=== PATIENT | female | born 1940 | race Two or more races ===

== ENCOUNTER → 2022-04-02 | Outpatient (CLI) | payer OTHER, MEDICAID | END | disposition home or self-care (01) | LOC: XYW 13:06 | PROVIDERS: ATTEND Internal Medicine | DX: I08.0 Rheumatic disorders of both mitral and aortic valves (principal); R07.9 Chest pain, unspecified; I11.9 Hypertensive heart disease without heart failure | CPT/HCPCS: 93306 ==

== ENCOUNTER → 2022-04-04 | Outpatient (CLI) | payer OTHER, MEDICAID ==
[~2022-04-04] VITALS: Ht 154.9 cm; Wt 48.5 kg
[~2022-04-04] MED LIST: ADENOSINE 41 MG in GIVE UN-DILUTED 0 ML IV STA
== END | disposition home or self-care (01) ==
LOC: XYW 07:10 → EDUNIT# 07:30
PROVIDERS: ATTEND Internal Medicine
DX: R07.9 Chest pain, unspecified (principal)
CPT/HCPCS: 78452; 93017; A9500; J0153

== ENCOUNTER → 2022-04-05 | Outpatient (CLI) | payer OTHER, MEDICAID | END | disposition home or self-care (01) | LOC: XY 08:38 | PROVIDERS: ATTEND Internal Medicine | DX: I65.23 Occlusion and stenosis of bilateral carotid arteries (principal); R09.89 Other specified symptoms and signs involving the circulatory and respiratory systems | CPT/HCPCS: 93886 ==

== ENCOUNTER 2022-05-18 04:41 | Inpatient (IN) | payer OTHER, MEDICAID ==
[~2022-05-18] VITALS: Ht 162.6 cm; Wt 57.0 kg
[2022-05-18] MEDS ORDERED: ONDANSETRON HCL 4 MG/2 ML VIAL IV ONE ×2 (06:15→09:15)
[2022-05-18] MEDS ORDERED: MORPHINE SULFATE INJ 2 MG/ml SYRG IV ONE ×2 (06:15→09:15)
[2022-05-18] MEDS ORDERED: SODIUM CHLORIDE 0.9% 1,000 ML IV ONE (07:30)
[2022-05-18 07:58] LABS: Basophils # (auto) 0 10 ^3/uL (0-0.2); Basophils % (auto) 0.4 % (0.0-2.0); Eosinophils # (auto) 0.1 10 ^3/uL (0-0.8); Eosinophils % (auto) 0.9 % (0.0-7.0); Hematocrit 32.1 % (36.0-46.0); Hemoglobin 10.9 g/dL (12.2-16.2); Lymphocytes # (auto) 1.3 10 ^3/uL (0.4-5.4); Lymphocytes % (auto) 21.6 % (10.0-50.0); Mean Corpuscular Volume 88.4 fL (80.0-100.0); Monocytes # (auto) 0.4 10 ^3/uL (0-1.3); Monocytes % (auto) 6.5 % (0.0-12.0); Neutrophils # (auto) 4.3 10 ^3/uL (1.6-8.6); Neutrophils % (auto) 70.6 % (37.0-80.0); Nucleated Red Blood Cells % 0.1 %; Red Blood Cells 3.63 10^6/uL (4.0-5.20); Red Cell Distribution Width 13.1 % (11.8-14.3)
[2022-05-18 08:16] LABS: Albumin 3.1 g/dL (3.4-5.0); BUN/Creatinine Ratio 20.8; Calcium 9.5 mg/dL (8.5-10.1); Potassium 4.6 mmol/L (3.5-5.1)
[2022-05-18 09:01] LABS: Bilirubin, Total 0.6 mg/dL (0.2-1.0)
[2022-05-18 11:17] LABS: INR 1.01 (0.9-1.15)
[2022-05-18] MEDS ORDERED: hydrALAZINE HCL 20 MG/ML VL IV PRN (13:00)
[2022-05-18] MEDS ORDERED: ONDANSETRON HCL 4 MG/2 ML VIAL IV PRN (13:00)
[2022-05-18] MEDS ORDERED: NITROGLYCERIN 0.4 MG SL TAB SL PRN (13:00)
[2022-05-18] MEDS: SODIUM CHLORIDE 0.9% 1,000 ML IV SCH (13:00)
[2022-05-18] MEDS ORDERED: MORPHINE SULFATE INJ 2 MG/ml SYRG IV PRN ×2 (13:00)
[2022-05-18] MEDS ORDERED: DEXTROSE (50%) 50ML SYRG IV PRN (13:00)
[2022-05-18] MEDS: InsuLIN REG 1unit/0.01ml Soln (100units/ml) SC SCH ×2 (18:00→23:41)
[2022-05-18] MEDS: ACCU-CHEK COMFORT CURVE STRIP VI SCH ×2 (18:00→23:41)
[2022-05-18 22:00] VITALS: BP 128/53
[2022-05-18 22:38] VITALS: BP 128/53
[2022-05-18] MEDS ORDERED: ASPI1TAB37 PO (22:51)
[2022-05-18] MEDS ORDERED: AMLO-483 PO (22:51)
[2022-05-18] MEDS ORDERED: METF-370 PO (22:51)
[2022-05-18] MEDS ORDERED: CHOL50007 PO (22:51)
[2022-05-18] MEDS ORDERED: GLIP10TA9 PO (22:51)
[2022-05-18 22:58] LABS: Urine Bacteria NONE SEEN /hpf (None Seen); Urine Blood 1+ /uL (Negative); Urine Hyaline Cast FEW /lpf (0 - 2); Urine Mucus FEW (None Seen); Urine Specific Gravity 1.012 (1.001-1.035); Urine WBC 10 /hpf (0 - 5)
[2022-05-19 05:00] VITALS: BP 149/60
[2022-05-19] MEDS: ACCU-CHEK COMFORT CURVE STRIP VI SCH ×3 (05:21→18:34)
[2022-05-19] MEDS: InsuLIN REG 1unit/0.01ml Soln (100units/ml) SC SCH ×3 (05:24→18:36)
[2022-05-19] MEDS: SODIUM CHLORIDE 0.9% 1,000 ML IV SCH (06:14)
[2022-05-19 06:45] LABS: Basophils # (auto) 0 10 ^3/uL (0-0.2); Basophils % (auto) 0.6 % (0.0-2.0); Eosinophils # (auto) 0.1 10 ^3/uL (0-0.8); Mean Corpuscular Hemoglobin 30.7 pg (28.0-32.0); Monocytes # (auto) 0.4 10 ^3/uL (0-1.3); Monocytes % (auto) 8.9 % (0.0-12.0); Nucleated Red Blood Cells % 0.1 %; White Blood Cell 4.8 10^3/uL (4.4-10.8)
[2022-05-19 06:47] LABS: Eosinophils % (auto) 1.7 % (0.0-7.0); Hematocrit 29.3 % (36.0-46.0); Hemoglobin 10.3 g/dL (12.2-16.2); Lymphocytes # (auto) 1.2 10 ^3/uL (0.4-5.4); Lymphocytes % (auto) 26.1 % (10.0-50.0); Mean Corpuscular Hgb Conc. 34.9 g/dL (32.0-36.0); Mean Corpuscular Volume 87.9 fL (80.0-100.0); Neutrophils % (auto) 62.7 % (37.0-80.0); Red Blood Cells 3.34 10^6/uL (4.0-5.20); Red Cell Distribution Width 13.1 % (11.8-14.3)
[2022-05-19] MEDS ORDERED: VANCOMYCIN HCL 1000 MG VL ONE (07:06)
[2022-05-19 07:08] LABS: Albumin 2.9 g/dL (3.4-5.0); Calcium 8.9 mg/dL (8.5-10.1); Potassium 4.5 mmol/L (3.5-5.1)
[2022-05-19 07:12] LABS: Bilirubin, Total 0.8 mg/dL (0.2-1.0); Total Protein 5.7 g/dL (6.4-8.2)
[2022-05-19] MEDS ORDERED: DexAMETHasone SOD PHOS 10MG/1ML VIAL INJ ONE (07:19)
[2022-05-19] MEDS ORDERED: PROPOFOL 10 MG/ML 20 ML IV ONE (07:19)
[2022-05-19] MEDS ORDERED: LIDOCAINE 2% (LOCAL ANESTH.) PF 5ml SDV ONE (07:19)
[2022-05-19] MEDS ORDERED: ONDANSETRON HCL 4 MG/2 ML VIAL ONE (07:19)
[2022-05-19] MEDS ORDERED: fentaNYL CITRATE 100 MCG/2 ML VL ONE (07:22)
[2022-05-19] MEDS ORDERED: BUPIVACAINE 0.25% INJ 50ML VIAL ONE (07:54)
[2022-05-19] MEDS ORDERED: HYDROmorphone HCL 2 MG/ML VL/or syr IV PRN ×2 (09:00)
[2022-05-19] MEDS ORDERED: LABETALOL HCL 5 MG/ML 4ML SYRINGE IV PRN (09:00)
[2022-05-19] MEDS ORDERED: ONDANSETRON HCL 4 MG/2 ML VIAL IV PRN (09:00)
[2022-05-19] MEDS ORDERED: hydrALAZINE HCL 20 MG/ML VL IV PRN (09:00)
[2022-05-19] MEDS ORDERED: HYDROmorphone HCL 2 MG/ML VL/or syr ONE (09:02)
[2022-05-19] MEDS: VANCOMYCIN 1GM/250ML 250 ML IV SCH ×2 (10:00→21:54)
[2022-05-19] MEDS ORDERED: PANTOPRAZOLE 40 MG/10 ML VIAL INJ IV SCH (10:00)
[2022-05-19] MEDS ORDERED: SENNA 8.6 MG TAB PO PRN (16:15)
[2022-05-19] MEDS ORDERED: HYDROmorphone HCL 2 MG TAB PO PRN (16:15)
[2022-05-19] MEDS ORDERED: POLYETHYLENE GLYCOL 17 GM PWDR PO PRN (16:15)
[2022-05-19 17:00] VITALS: BP 108/44
[2022-05-19 19:45] VITALS: BP 111/48
[2022-05-19] MEDS: SENNA 8.6 MG TAB PO SCH (21:51)
[2022-05-19] MEDS: ACETAMINOPHEN 500 MG TAB PO SCH (21:53)
[2022-05-19 22:00] VITALS: BP 111/48
[2022-05-20] VITALS (7 sets, daily range): BP systolic 101–124; BP diastolic 31–51
[2022-05-20] MEDS: ACCU-CHEK COMFORT CURVE STRIP VI SCH ×5 (00:06→23:47)
[2022-05-20] MEDS: InsuLIN REG 1unit/0.01ml Soln (100units/ml) SC SCH ×5 (00:12→23:47)
[2022-05-20] MEDS: ACETAMINOPHEN 500 MG TAB PO SCH ×3 (05:45→21:30)
[2022-05-20] MEDS: POLYETHYLENE GLYCOL 17 GM PWDR PO SCH (09:49)
[2022-05-20] MEDS: ENOXAPARIN SOD 40 MG/0.4 ML SYRINGE SC SCH (09:49)
[2022-05-20] MEDS ORDERED: SODIUM CHLORIDE 0.9% 250 ML IV ONE (12:15)
[2022-05-20] MEDS: MORPHINE SULFATE INJ 2 MG/ml SYRG IV PRN (12:26)
[2022-05-20] MEDS: SODIUM CHLORIDE 0.9% 1,000 ML IV SCH (12:27)
[2022-05-20] MEDS ORDERED: VANCOMYCIN 1GM/250ML 250 ML IV ONE (13:15)
[2022-05-20] MEDS: SENNA 8.6 MG TAB PO SCH (21:31)
[2022-05-21] MEDS: SODIUM CHLORIDE 0.9% 1,000 ML IV SCH (01:19)
[2022-05-21 05:00] VITALS: BP 108/42
[2022-05-21] MEDS: ACCU-CHEK COMFORT CURVE STRIP VI SCH ×4 (05:57→23:45)
[2022-05-21] MEDS: ACETAMINOPHEN 500 MG TAB PO SCH ×3 (05:57→18:03)
[2022-05-21] MEDS: InsuLIN REG 1unit/0.01ml Soln (100units/ml) SC SCH ×4 (05:59→23:48)
[2022-05-21 08:00] VITALS: BP 129/54
[2022-05-21 08:44] VITALS: BP 129/54
[2022-05-21] MEDS: POLYETHYLENE GLYCOL 17 GM PWDR PO SCH (09:56)
[2022-05-21] MEDS: ENOXAPARIN SOD 40 MG/0.4 ML SYRINGE SC SCH (09:57)
[2022-05-21] MEDS: MORPHINE SULFATE INJ 2 MG/ml SYRG IV PRN ×2 (09:57→20:11)
[2022-05-21 13:56] VITALS: BP 111/49
[2022-05-21 16:34] VITALS: BP 123/45
[2022-05-21 22:00] VITALS: BP 118/50
[2022-05-21] MEDS: SENNA 8.6 MG TAB PO SCH (22:16)
[2022-05-22 05:00] VITALS: BP 142/59
[2022-05-22] MEDS: InsuLIN REG 1unit/0.01ml Soln (100units/ml) SC SCH ×4 (06:00→23:07)
[2022-05-22] MEDS: ACETAMINOPHEN 500 MG TAB PO SCH ×3 (06:00→20:34)
[2022-05-22] MEDS: ACCU-CHEK COMFORT CURVE STRIP VI SCH ×4 (06:11→23:05)
[2022-05-22 08:00] VITALS: BP 123/46
[2022-05-22 09:00] VITALS: BP 123/46
[2022-05-22] MEDS: ENOXAPARIN SOD 40 MG/0.4 ML SYRINGE SC SCH (09:36)
[2022-05-22] MEDS: POLYETHYLENE GLYCOL 17 GM PWDR PO SCH (09:36)
[2022-05-22] MEDS: MORPHINE SULFATE INJ 2 MG/ml SYRG IV PRN ×2 (09:37→16:27)
[2022-05-22 13:00] VITALS: BP 99/54
[2022-05-22 16:55] VITALS: BP 117/49
[2022-05-22] MEDS: SENNA 8.6 MG TAB PO SCH (20:33)
[2022-05-22 22:00] VITALS: BP 116/45
[2022-05-23] VITALS (11 sets, daily range): BP systolic 131–168; BP diastolic 45–76
[2022-05-23] MEDS: ACETAMINOPHEN 500 MG TAB PO SCH (06:20)
[2022-05-23] MEDS: ACCU-CHEK COMFORT CURVE STRIP VI SCH ×4 (06:20→23:47)
[2022-05-23] MEDS: InsuLIN REG 1unit/0.01ml Soln (100units/ml) SC SCH ×4 (06:25→23:50)
[2022-05-23 06:33] LABS: BUN/Creatinine Ratio 23.4; Calcium 8.9 mg/dL (8.5-10.1); Potassium 4.3 mmol/L (3.5-5.1)
[2022-05-23 07:24] LABS: Basophils # (auto) 0 10 ^3/uL (0-0.2); Basophils % (auto) 0.3 % (0.0-2.0); Eosinophils # (auto) 0.1 10 ^3/uL (0-0.8); Lymphocytes # (auto) 0.8 10 ^3/uL (0.4-5.4); Monocytes # (auto) 0.5 10 ^3/uL (0-1.3); Red Cell Distribution Width 13.3 % (11.8-14.3); White Blood Cell 4.4 10^3/uL (4.4-10.8)
[2022-05-23 07:26] LABS: Eosinophils % (auto) 1.7 % (0.0-7.0); Hematocrit 18.5 % (36.0-46.0); Lymphocytes % (auto) 17.6 % (10.0-50.0); Mean Corpuscular Hemoglobin 30.9 pg (28.0-32.0); Mean Corpuscular Hgb Conc. 34.3 g/dL (32.0-36.0); Mean Corpuscular Volume 90.1 fL (80.0-100.0); Monocytes % (auto) 11.3 % (0.0-12.0); Neutrophils % (auto) 69.1 % (37.0-80.0); Nucleated Red Blood Cells % 0.1 %; Red Blood Cells 2.05 10^6/uL (4.0-5.20)
[2022-05-23 07:38] LABS: Hemoglobin 6.3 g/dL (12.2-16.2)
[2022-05-23] MEDS: ENOXAPARIN SOD 40 MG/0.4 ML SYRINGE SC SCH (10:00)
[2022-05-23] MEDS: POLYETHYLENE GLYCOL 17 GM PWDR PO SCH (10:16)
[2022-05-23] MEDS ORDERED: traMADol HCL 50 MG TAB PO PRN (12:15)
[2022-05-23] MEDS ORDERED: ACETAMINOPHEN 500 MG TAB PO PRN (12:15)
[2022-05-23] MEDS: SENNA 8.6 MG TAB PO SCH (21:09)
[2022-05-23] MEDS: MORPHINE SULFATE INJ 2 MG/ml SYRG IV PRN (23:44)
[2022-05-24 05:00] VITALS: BP 119/62
[2022-05-24] MEDS: ACCU-CHEK COMFORT CURVE STRIP VI SCH ×4 (05:55→23:36)
[2022-05-24] MEDS: InsuLIN REG 1unit/0.01ml Soln (100units/ml) SC SCH ×4 (06:05→23:44)
[2022-05-24 06:08] LABS: Basophils # (auto) 0 10 ^3/uL (0-0.2); Basophils % (auto) 0.4 % (0.0-2.0); Eosinophils # (auto) 0.1 10 ^3/uL (0-0.8); Eosinophils % (auto) 1.6 % (0.0-7.0); Hemoglobin 8.8 g/dL (12.2-16.2); Mean Corpuscular Hemoglobin 30.2 pg (28.0-32.0); Mean Corpuscular Hgb Conc. 33.7 g/dL (32.0-36.0); Mean Corpuscular Volume 89.6 fL (80.0-100.0); Monocytes # (auto) 0.6 10 ^3/uL (0-1.3); Monocytes % (auto) 12.4 % (0.0-12.0); Neutrophils % (auto) 64.6 % (37.0-80.0); Nucleated Red Blood Cells % 0.2 %; Red Blood Cells 2.91 10^6/uL (4.0-5.20); Red Cell Distribution Width 13.7 % (11.8-14.3); White Blood Cell 4.7 10^3/uL (4.4-10.8)
[2022-05-24] MEDS: POLYETHYLENE GLYCOL 17 GM PWDR PO SCH (08:56)
[2022-05-24 09:00] VITALS: BP 159/65
[2022-05-24] MEDS ORDERED: ACETAMINOPHEN 325 MG TAB PO PRN (09:00)
[2022-05-24] MEDS: ENOXAPARIN SOD 40 MG/0.4 ML SYRINGE SC SCH (12:08)
[2022-05-24 13:00] VITALS: BP 157/54
[2022-05-24] MEDS: MORPHINE SULFATE INJ 2 MG/ml SYRG IV PRN ×2 (13:10→22:16)
[2022-05-24 17:00] VITALS: BP 156/79
[2022-05-24] MEDS: SENNA 8.6 MG TAB PO SCH (21:28)
[2022-05-24 21:56] VITALS: BP 159/68
[2022-05-25 05:14] VITALS: BP 113/65
[2022-05-25] MEDS: ACCU-CHEK COMFORT CURVE STRIP VI SCH ×2 (05:49→12:27)
[2022-05-25] MEDS: InsuLIN REG 1unit/0.01ml Soln (100units/ml) SC SCH ×2 (05:50→12:00)
[2022-05-25 06:29] LABS: Basophils # (auto) 0 10 ^3/uL (0-0.2); Basophils % (auto) 0.3 % (0.0-2.0); Eosinophils # (auto) 0.1 10 ^3/uL (0-0.8); Eosinophils % (auto) 1.5 % (0.0-7.0); Hematocrit 26.9 % (36.0-46.0); Hemoglobin 9.5 g/dL (12.2-16.2); Lymphocytes % (auto) 21.2 % (10.0-50.0); Mean Corpuscular Hemoglobin 30.8 pg (28.0-32.0); Mean Corpuscular Hgb Conc. 35.2 g/dL (32.0-36.0); Mean Corpuscular Volume 87.3 fL (80.0-100.0); Monocytes # (auto) 0.6 10 ^3/uL (0-1.3); Monocytes % (auto) 13.2 % (0.0-12.0); Neutrophils # (auto) 2.9 10 ^3/uL (1.6-8.6); Neutrophils % (auto) 63.8 % (37.0-80.0); Nucleated Red Blood Cells % 0.2 %; Red Blood Cells 3.08 10^6/uL (4.0-5.20); Red Cell Distribution Width 13.6 % (11.8-14.3); White Blood Cell 4.5 10^3/uL (4.4-10.8)
[2022-05-25 09:00] VITALS: BP 143/63
[2022-05-25] MEDS: ENOXAPARIN SOD 40 MG/0.4 ML SYRINGE SC SCH (10:00)
[2022-05-25] MEDS: POLYETHYLENE GLYCOL 17 GM PWDR PO SCH (10:00)
[2022-05-25] MEDS ORDERED: ASPI-717 PO (12:24)
[2022-05-25] MEDS ORDERED: PANT40TA2 PO (12:24)
[2022-05-25] MEDS ORDERED: DOCU-94 PO (12:24)
[2022-05-25] MEDS ORDERED: TRAM50TA2 PO (12:24)
[2022-05-25 13:00] VITALS: BP 129/54
== END 2022-05-25 14:39 | disposition home or self-care (01) | DRG 482 ==
LOC: ER 04:41 → EDBD 04:41 → EDUNIT# 04:41 → TELE 13:10 → TELE-WESTW 20:18
PROVIDERS: ADMIT Nurse Practitioner Family; ATTEND Internal Medicine
PROC: BQ101ZZ Fluoroscopy of Right Hip using Low Osmolar Contrast (ICD-10-PCS; 2022-05-19)
PROC: 0QS634Z Reposition Right Upper Femur with Internal Fixation Device, Percutaneous Approach (ICD-10-PCS; principal; 2022-05-19 07:25)
PROC: 30233N1 Transfusion of Nonautologous Red Blood Cells into Peripheral Vein, Percutaneous Approach (ICD-10-PCS; 2022-05-23)
DX: S72.141A Displaced intertrochanteric fracture of right femur, initial encounter for closed fracture (principal); S09.90XA Unspecified injury of head, initial encounter; D64.9 Anemia, unspecified; E78.5 Hyperlipidemia, unspecified; W06.XXXA Fall from bed, initial encounter; Y93.01 Activity, walking, marching and hiking; Z20.822 Contact with and (suspected) exposure to COVID-19; M81.0 Age-related osteoporosis without current pathological fracture; E11.9 Type 2 diabetes mellitus without complications; I10 Essential (primary) hypertension; Z79.899 Other long term (current) drug therapy; Z86.73 Personal history of transient ischemic attack (TIA), and cerebral infarction without residual deficits; Z88.0 Allergy status to penicillin; Z90.710 Acquired absence of both cervix and uterus; Z90.49 Acquired absence of other specified parts of digestive tract; Y92.89 Other specified places as the place of occurrence of the external cause; Y99.8 Other external cause status
CPT/HCPCS: 36415; 70450; 71045; 72170; 72192; 73502; 76000; 80048; 80053; 81001; 82962; 83036; 84484; 85025; 85610; 86850; 86900; 86901; 86920; 87426; 93005; 96361; 96374; 96375; 96376; 97110; 97116; 97163; 97530; A4565; C9113; G0378; J1100; J1815; J2001; J2405; J2704; J3490

== ENCOUNTER 2022-06-05 19:29 | Inpatient (IN) | payer OTHER, MEDICAID ==
[~2022-06-05] VITALS: Ht 157.5 cm; Wt 68.0 kg
[~2022-06-05 19:29] MED LIST changes: -ADENOSINE 41 MG in GIVE UN-DILUTED 0 ML IV STA; +ASPI-717 PO; +ASPI1TAB37 PO; +CHOL50007 PO; +DOCU-94 PO; +GLIP10TA9 PO; +METF-370 PO; +PANT40TA2 PO; +TRAM50TA2 PO
[2022-06-05] MEDS ORDERED: DEXTROSE (50%) 50ML SYRG IV ONE (20:15)
[2022-06-05 22:05] LABS: Basophils # (auto) 0 10 ^3/uL (0-0.2); Basophils % (auto) 0.1 % (0.0-2.0); Eosinophils # (auto) 0 10 ^3/uL (0-0.8); Eosinophils % (auto) 0.1 % (0.0-7.0); Hematocrit 24.5 % (36.0-46.0); Hemoglobin 8.5 g/dL (12.2-16.2); Lymphocytes # (auto) 0.5 10 ^3/uL (0.4-5.4); Lymphocytes % (auto) 3.9 % (10.0-50.0); Mean Corpuscular Hgb Conc. 34.6 g/dL (32.0-36.0); Mean Corpuscular Volume 86.8 fL (80.0-100.0); Monocytes # (auto) 0.5 10 ^3/uL (0-1.3); Neutrophils # (auto) 11.5 10 ^3/uL (1.6-8.6); Neutrophils % (auto) 91.9 % (37.0-80.0); Red Blood Cells 2.82 10^6/uL (4.0-5.20); Red Cell Distribution Width 14.4 % (11.8-14.3); White Blood Cell 12.5 10^3/uL (4.4-10.8)
[2022-06-05 22:13] LABS: INR 1.02 (0.9-1.15); Partial Thromboplastin Time 42.5 sec (24.6-33.4)
[2022-06-05 22:14] LABS: Albumin 2.2 g/dL (3.4-5.0); Calcium 8.2 mg/dL (8.5-10.1); Magnesium 1.7 mg/dL (1.6-2.6); Potassium 4.8 mmol/L (3.5-5.1)
[2022-06-05 22:17] LABS: BUN/Creatinine Ratio 20.7
[2022-06-05 22:19] LABS: Bilirubin, Total 0.7 mg/dL (0.2-1.0); Total Protein 5.3 g/dL (6.4-8.2)
[2022-06-05] MEDS ORDERED: SODIUM CHLORIDE 0.9% 1,000 ML IV ONE (22:30)
[2022-06-05] MEDS ORDERED: ONDANSETRON HCL 4 MG/2 ML VIAL IV PRN (23:00)
[2022-06-05] MEDS ORDERED: ACETAMINOPHEN 325 MG TAB PO PRN (23:00)
[2022-06-05] MEDS ORDERED: DOCUSATE SOD 100 MG CAP PO PRN (23:00)
[2022-06-05] MEDS ORDERED: MORPHINE SULFATE INJ 2 MG/ml SYRG IV PRN (23:00)
[2022-06-05] MEDS ORDERED: MAALOX PLUS or MAALOX 30 ML PO PRN (23:00)
[2022-06-05] MEDS ORDERED: traMADol HCL 50 MG TAB PO ONE (23:30)
[2022-06-06] MEDS ORDERED: DEXTROSE (50%) 50ML SYRG IV ONE (00:30)
[2022-06-06] MEDS: DEXTROSE (50%) 50ML SYRG IV PRN ×2 (00:30→06:43)
[2022-06-06] MEDS ORDERED: ACCU-CHEK COMFORT CURVE STRIP VI SCH (07:00)
[2022-06-06] MEDS ORDERED: DEXTROSE 10% 1,000 ML IV SCH (07:00)
[2022-06-06] MEDS ORDERED: InsuLIN REG 1unit/0.01ml Soln (100units/ml) SC SCH (07:00)
[2022-06-06] MEDS ORDERED: DEXTROSE (50%) 50ML SYRG IV PRN ×2 (07:00→14:00)
[2022-06-06 07:25] LABS: BUN/Creatinine Ratio 21.1; Calcium 8.3 mg/dL (8.5-10.1); Potassium 4.5 mmol/L (3.5-5.1)
[2022-06-06 07:51] LABS: Basophils # (auto) 0 10 ^3/uL (0-0.2); Basophils % (auto) 0.2 % (0.0-2.0); Eosinophils # (auto) 0.1 10 ^3/uL (0-0.8); Eosinophils % (auto) 0.6 % (0.0-7.0); Hematocrit 26.7 % (36.0-46.0); Hemoglobin 9.1 g/dL (12.2-16.2); Lymphocytes # (auto) 0.7 10 ^3/uL (0.4-5.4); Lymphocytes % (auto) 7.6 % (10.0-50.0); Mean Corpuscular Hgb Conc. 34.1 g/dL (32.0-36.0); Mean Corpuscular Volume 88.1 fL (80.0-100.0); Monocytes # (auto) 0.5 10 ^3/uL (0-1.3); Neutrophils # (auto) 7.6 10 ^3/uL (1.6-8.6); Neutrophils % (auto) 85.6 % (37.0-80.0); Red Blood Cells 3.03 10^6/uL (4.0-5.20); Red Cell Distribution Width 14.8 % (11.8-14.3); White Blood Cell 8.9 10^3/uL (4.4-10.8)
[2022-06-06] MEDS: ACCU-CHEK COMFORT CURVE STRIP VI SCH ×8 (08:12→23:43)
[2022-06-06] MEDS: cefTRIAXone 1GM/50ML D5W 50 ML IV SCH (09:37)
[2022-06-06] MEDS ORDERED: PANTOPRAZOLE 40 MG TAB PO ONE (14:00)
[2022-06-06] MEDS: SODIUM CHLORIDE 0.9% 1,000 ML IV SCH (15:43)
[2022-06-06] MEDS: InsuLIN REG 1unit/0.01ml Soln (100units/ml) SC SCH ×2 (18:00→23:48)
[2022-06-06 22:54] VITALS: BP 165/60
[2022-06-07] VITALS (7 sets, daily range): BP systolic 119–154; BP diastolic 50–78
[2022-06-07] MEDS: SODIUM CHLORIDE 0.9% 1,000 ML IV SCH (04:04)
[2022-06-07] MEDS: InsuLIN REG 1unit/0.01ml Soln (100units/ml) SC SCH ×4 (05:54→23:45)
[2022-06-07] MEDS: ACCU-CHEK COMFORT CURVE STRIP VI SCH ×4 (05:54→23:44)
[2022-06-07 06:43] LABS: Hemoglobin 9.4 g/dL (12.2-16.2); Mean Corpuscular Hemoglobin 29.9 pg (28.0-32.0); Mean Corpuscular Hgb Conc. 34.8 g/dL (32.0-36.0); Mean Corpuscular Volume 85.8 fL (80.0-100.0); Red Blood Cells 3.14 10^6/uL (4.0-5.20); Red Cell Distribution Width 14.3 % (11.8-14.3); White Blood Cell 4.4 10^3/uL (4.4-10.8)
[2022-06-07 06:45] LABS: Basophils % (manual) 0 (0.0-2.0); Blast Cells 0; Promyelocytes % 0; Reactive Lymphocytes 0
[2022-06-07 06:50] LABS: Potassium 4.5 mmol/L (3.5-5.1)
[2022-06-07 06:56] LABS: BUN/Creatinine Ratio 34.3; Calcium 9.3 mg/dL (8.5-10.1)
[2022-06-07] MEDS: ASPirin 81 mg TAB PO SCH (11:18)
[2022-06-07] MEDS: cefTRIAXone 1GM/50ML D5W 50 ML IV SCH (11:18)
[2022-06-07] MEDS: PANTOPRAZOLE 40 MG TAB PO SCH (11:19)
[2022-06-07 12:06] LABS: Band Neutrophils % (manual) 3; Eosinophils % (manual) 4 (0-7); Lymphocytes % (manual) 17 (10.0-50.0); Metamyelocytes % 1; Monocytes % (manual) 11 (0-12); Myelocytes % 2
[2022-06-07] MEDS: HYDROcodone-ACET 5/325MG TAB PO PRN (12:40)
[2022-06-08 05:00] VITALS: BP 129/57
[2022-06-08] MEDS: ACCU-CHEK COMFORT CURVE STRIP VI SCH ×2 (05:43→11:40)
[2022-06-08] MEDS: InsuLIN REG 1unit/0.01ml Soln (100units/ml) SC SCH ×2 (05:44→11:40)
[2022-06-08 05:54] LABS: Calcium 9.4 mg/dL (8.5-10.1); Potassium 4.6 mmol/L (3.5-5.1)
[2022-06-08 05:56] LABS: BUN/Creatinine Ratio 23.7
[2022-06-08] MEDS: HYDROcodone-ACET 5/325MG TAB PO PRN ×2 (06:36→15:45)
[2022-06-08 09:00] VITALS: BP 125/56
[2022-06-08] MEDS: ASPirin 81 mg TAB PO SCH (10:13)
[2022-06-08] MEDS: PANTOPRAZOLE 40 MG TAB PO SCH (10:13)
[2022-06-08] MEDS: cefTRIAXone 1GM/50ML D5W 50 ML IV SCH (10:13)
[2022-06-08 13:00] VITALS: BP 148/60
[2022-06-08 13:59] LABS: Urine Bacteria FEW /hpf (None Seen); Urine Blood 1+ /uL (Negative); Urine Budding Yeast LOADED /hpf (None Seen); Urine Hyaline Cast FEW /lpf (0 - 2); Urine Specific Gravity 1.012 (1.001-1.035); Urine WBC 10 /hpf (0 - 5)
[2022-06-08] MEDS ORDERED: HYDR1TAB97 PO (14:49)
[2022-06-08 15:21] VITALS: BP 148/60
== END 2022-06-08 16:20 | disposition home health service (06) | DRG 640 ==
LOC: EDBD 19:29 → ER 19:29 → EDUNIT# 19:29 → TELE 23:21 → TELE-WESTW 06-06 22:22 → WEST WING 06-07 19:29
PROVIDERS: ADMIT Hospitalist; ATTEND Internal Medicine
DX: E87.1 Hypo-osmolality and hyponatremia (principal); G93.41 Metabolic encephalopathy; N17.0 Acute kidney failure with tubular necrosis; N39.0 Urinary tract infection, site not specified; E11.649 Type 2 diabetes mellitus with hypoglycemia without coma; I48.91 Unspecified atrial fibrillation; I10 Essential (primary) hypertension; M81.0 Age-related osteoporosis without current pathological fracture; Z20.822 Contact with and (suspected) exposure to COVID-19; Z88.0 Allergy status to penicillin; D64.9 Anemia, unspecified; M25.551 Pain in right hip; E78.5 Hyperlipidemia, unspecified; Z86.73 Personal history of transient ischemic attack (TIA), and cerebral infarction without residual deficits; Z90.49 Acquired absence of other specified parts of digestive tract; Z90.710 Acquired absence of both cervix and uterus; Z83.3 Family history of diabetes mellitus; Z79.4 Long term (current) use of insulin
CPT/HCPCS: 36415; 70450; 71045; 71250; 72125; 74176; 80048; 80053; 81001; 82550; 82962; 83735; 84484; 85007; 85025; 85027; 85610; 85730; 87081; 87426; 93005; 96361; 96374; G0378; J0696; J1815